=== PATIENT | female | born 1980 ===

== ENCOUNTER 2017-07-02 05:23 | Emergency (ER) | payer MEDICAID ==
[2017-07-02 05:39] VITALS: BP 134/76; PULSE 72; RESP 18; TEMP 97.4; O2SAT 100
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
== END 2017-07-02 06:00 ==
LOC: H.ER 05:23 → MERGE 05:23 → H.ER 06:00
DX: F10.129 Alcohol abuse with intoxication, unspecified (principal)